=== PATIENT | female | born 1960 | race Caucasian/White ===

== ENCOUNTER → 2016-10-30 | Outpatient (CLI) | payer OTHER ==
[~2016-10-30] MED LIST: CINN1CAP2 PO; FRS/40 PO; IBUP-103 PO; OMEG10007 PO; PROB1CAP27 PO; RIVA1.5T PO
--- NOTE | 2016-10-30 10:41 | DIAGNOSTIC IMAGING REPORT ---
CHEST CT WITHOUT CONTRAST CT DOSE: 259.90 mGy.cm HISTORY: Pleural fluid J90 Pleural effusion on right CTS TECHNIQUE: Multiaxial CT images of the chest were performed without contrast. COMPARISON: 04/27/2016 Findings: Improved exam. Stable 5 mm nodule posterior aspect right upper lobe. Stable 4 mm nodule left upper lobe transaxial image 26. Minimal residual atelectatic change right base. Previously described pleural and parenchymal elements have resolved. No significant mediastinal or hilar adenopathy. Mild left ischemic change thoracic aorta. IMPRESSION: Improved exam. Minimal residual atelectatic change right base. Minimal low suspicion parenchymal nodularity unchanged. No significant pleural effusion Electronically signed by: Jareth Cerda M.D. 10/30/2016 10:39 AM Dictated Date/Time: 10/30/2016 10:37 AM
== END | disposition home or self-care (01) ==
LOC: C.CTS 10:14
PROVIDERS: ATTEND Internal Medicine Pulmonary Disease
DX: J90 Pleural effusion, not elsewhere classified (principal)

== ENCOUNTER → 2017-03-11 | Outpatient (CLI) | payer OTHER ==
--- NOTE | 2017-03-11 10:35 | DIAGNOSTIC IMAGING REPORT ---
MRI OF THE LUMBAR SPINE WITHOUT IV CONTRAST CLINICAL HISTORY: Low back pain. Numbness and tingling in the left leg. COMPARISON STUDY: Abdominal CT dated 12/20/2014. TECHNIQUE: MRI of the lumbar spine is performed utilizing various T1 and T2-weighted sequences in the axial and sagittal planes. IV contrast was not administered for this examination. FINDINGS: Lumbar spine: Vertebral body height and alignment are maintained throughout the lumbar spine. There is partial fusion of the L3 and L4 vertebral bodies. Small anterior osteophytes are seen throughout. The transverse and spinous processes are intact as visualized. There is no evidence of spondylolysis. No destructive bony lesion is seen. A tiny hemangioma is noted in the body of L1. Intervertebral discs: There is mild degenerative disc desiccation seen throughout the lumbar spine. There is advanced loss of height at L3-L4 renal and mild loss of height is seen at L1-L2. Spinal cord: The visualized spinal cord is normal in morphology and signal intensity. The conus medullaris terminates at the level of L1. The nerve roots of the cauda equina are normal in morphology. L1-L2: There is minimal posterior disc bulge. The central canal and neural foramina are patent. L2-L3: The central canal and neural foramina are patent. L3-L4: There is minimal posterior disc bulge. There is mild bilateral subarticular stenosis. This abuts the exiting right L3 nerve root. The central canal neural foramina are patent. L4-L5: There is minimal disc bulge eccentric to the left. The central canal and neural foramina are patent. Minimal facet arthropathy is of no consequence. L5-S1: There is minimal disc bulge with mild bilateral subarticular stenosis. The central canal is widely patent. Facet arthropathy causes minimal bilateral neural foraminal stenosis. Soft tissues: The paraspinous soft tissues are normal in appearance. The imaged retroperitoneal structures are grossly unremarkable but incompletely assessed. IMPRESSION: 1. There is no large disc herniation, central canal stenosis, or neural foraminal narrowing seen throughout the lumbar spine. 2. There is partial bony fusion of L3 and L4. 3. Mild spondylotic change as above. See discussion for detailed level by level analysis. 4. No destructive bony process is seen. Electronically signed by: Jerome Yu M.D. 03/11/2017 10:34 AM Dictated Date/Time: 03/11/2017 10:23 AM
== END | disposition home or self-care (01) ==
LOC: C.MRI 09:21
PROVIDERS: ATTEND Pediatrics Sports Medicine
DX: M54.5 Low back pain (principal)

== ENCOUNTER → 2017-08-25 | Outpatient (CLI) | payer OTHER ==
--- NOTE | 2017-08-25 12:15 | DIAGNOSTIC IMAGING REPORT ---
(CHEST) THORAX WITHOUT CT DOSE: 275.64 mGy.cm HISTORY: Follow-up PULMONARY NODULE TECHNIQUE: Multiaxial CT images of the chest were performed without contrast. A dose lowering technique was utilized adhering to the principles of ALARA. COMPARISON: Chest CT 04/25/2016. FINDINGS: Partially visualized cervical spinal fusion hardware. A few mildly enlarged mediastinal and hilar lymph nodes. This is slightly progressed in the interval. The heart is stable in size. No pleural or pericardial effusions. The visualized liver, spleen, and adrenal glands are unremarkable. Coronary artery calcifications. No suspicious lytic or blastic osseous lesions. Stable 5 mm subpleural nodule within the right upper lobe posteriorly on image 70 and a stable 4 mm nodule within the left upper lobe on image 102. Mild emphysema. Multiple new irregular groundglass and solid subcentimeter nodules seen scattered throughout the lungs. These demonstrate a random distribution with upper lobe predominance. Linear density at the right lower lobe favor subsegmental atelectasis. The central airways are patent. IMPRESSION: 1. Interval development of multiple subcentimeter irregular groundglass and solid nodules seen scattered throughout the lungs demonstrating upper lobe predominance. This is nonspecific but favors an atypical pneumonia. Respiratory bronchiolitis interstitial lung disease, sarcoidosis, or less likely hypersensitivity pneumonitis could also have a similar appearance. Pulmonary consultation is recommended for further evaluation. 2. Mild mediastinal and hilar lymphadenopathy which is slightly progressed. This is likely reactive. 3. Stable 5 mm nodule within the right upper lobe and 4 mm nodule within the left upper lobe. Continued six-month follow-up CT is recommended to ensure resolution of the new irregular/nodular densities. 4. Mild emphysema. Electronically signed by: Klaus Fernandez M.D. 08/25/2017 12:14 PM Dictated Date/Time: 08/25/2017 11:45 AM
== END | disposition home or self-care (01) ==
LOC: C.CTS 11:24
PROVIDERS: ATTEND Internal Medicine Pulmonary Disease
DX: R91.8 Other nonspecific abnormal finding of lung field (principal)

== ENCOUNTER → 2017-09-07 | Outpatient (CLI) | payer OTHER | END | disposition home or self-care (01) | LOC: C.LAB1850 09:40 | PROVIDERS: ATTEND Internal Medicine Pulmonary Disease | DX: R91.8 Other nonspecific abnormal finding of lung field (principal) ==

== ENCOUNTER → 2018-01-03 | Outpatient (CLI) | payer OTHER ==
--- NOTE | 2018-01-03 09:34 | DIAGNOSTIC IMAGING REPORT ---
CHEST CT WITH CONTRAST CT DOSE: 340.65 mGy.cm HISTORY: Follow-up study in a patient with history of lung nodules MULTIPLE LUNG NODULES ON CT TECHNIQUE: Multiaxial CT images of the chest were performed following the intravenous administration of contrast. A dose lowering technique was utilized adhering to the principles of ALARA. COMPARISON: Chest CT 08/25/2017, 04/27/2016, 01/14/2016 FINDINGS: Homogeneous thyroid. Prominent precarinal 9 mm lymph node seen in addition to a 10 mm subcarinal and prominent right hilar lymph nodes measuring up to 8 mm. Is unchanged from comparison and are likely reactive. Heart is normal in size with coronary arterial calcifications noted. No pericardial effusion. Thoracic aorta is normal in both course and caliber without aneurysm or dissection identified. There is moderate mixed plaquing of the thoracic aorta with approximately 50% luminal narrowing involving the origin of the left subclavian artery. The opacified pulmonary arterial tree is unremarkable. Mild to moderate upper lobe predominant centrilobular emphysema. No pneumothorax or pleural effusion. Mild dependent subsegmental bibasilar atelectasis. Linear subsegmental opacity of the right lower lobe extending from the superior segment of the basal segments suggest area of scarring with atelectasis. There is improved aeration of the bilateral lungs with near complete resolution of the multiple subcentimeter irregular groundglass and solid nodules within an upper lung zone predominant distribution. Unchanged size and appearance of the 5 mm right upper lobe and 4 mm lingular solid nodules nicely seen on image 85 and 128 respectively. These findings appear unchanged dating back to study dated 01/14/2016. No new or enlarging pulmonary nodules identified. Mild bilateral bronchial wall thickening. No acute process of the imaged upper abdomen. Soft tissues are unremarkable. Fusion hardware of the cervical spine is partially imaged. Bones appear intact. Multilevel intervertebral disc space narrowing and endplate spurring about the spine. IMPRESSION: 1. Improved aeration of the bilateral lungs with near complete resolution of the multiple subcentimeter irregular groundglass and solid nodules within an upper lung zone predominant distribution suggesting improved infectious or inflammatory pneumonitis. 2. Mildly prominent lymph nodes about the mediastinum and right hilum again seen which are likely reactive. 3. Emphysema with stable size and appearance of the solid 5 mm right upper lobe and 4 mm lingular nodules which appear unchanged in size and appearance dating back to CTA study dated 01/14/2016. 4. Coronary arterial disease. Please refer to below summary of Fleischner criteria recommendations for follow-up of incidental CT nodules (Gerald Pickett, Guidelines for management of small pulmonary nodules detected on CT scans: A statement from the Fleischner Society, Radiology 237: [phone].) SOLID NODULES Multiple nodules size: <6 mm * Low risk patients: no routine follow-up * high risk patients: optional CT at 12 months Note: newly detected indeterminate nodule in persons 35 years of age or older. * Low risk patients: minimal or absent history of smoking and/or other known risk factors * high risk patients: history of smoking or of other known risk factors (e.g. first degree relative with lung cancer, or exposure to asbestos, radon, uranium) * if a nodule up to 8 mm is partly solid or is ground glass further follow-up is required after 24 months to exclude possible slow growing adenocarcinoma (DEANNA) The above report was generated using voice recognition software. It may contain grammatical, syntax or spelling errors. Electronically signed by: Dorian Harp M.D. 01/03/2018 9:32 AM Dictated Date/Time: 01/03/2018 9:17 AM
== END | disposition home or self-care (01) ==
LOC: C.CTS 08:59
PROVIDERS: ATTEND Internal Medicine Pulmonary Disease
DX: R91.8 Other nonspecific abnormal finding of lung field (principal); J43.9 Emphysema, unspecified; I77.9 Disorder of arteries and arterioles, unspecified